=== PATIENT | female | born 1940 | race Caucasian/White ===

== ENCOUNTER 2018-03-03 09:07 | Day surgery (SDC) | payer MEDICARE, OTHER ==
[~2018-03-03] VITALS: Ht 160 cm; Wt 74.5 kg
[~2018-03-03 09:07] MED LIST: Aspirin EC325 MG PO; CHLO25B PO; ENOX30I SC; GABA300 PO; HYDMOR2 PO; LEVSOD50 PO; OMEP20ER PO; SIMV80 PO; VALS80 PO
== END 2018-03-03 11:41 | disposition home or self-care (01) ==
LOC: ORSCSDS 09:07
PROVIDERS: Anesthesiology
PROC: 3E0R33Z Introduction of Anti-inflammatory into Spinal Canal, Percutaneous Approach (ICD-10-PCS; principal; 2018-03-03 10:15)
DX: M50.122 Cervical disc disorder at C5-C6 level with radiculopathy (principal); I10 Essential (primary) hypertension; E78.00 Pure hypercholesterolemia, unspecified; K21.9 Gastro-esophageal reflux disease without esophagitis; I25.10 Atherosclerotic heart disease of native coronary artery without angina pectoris; Z87.891 Personal history of nicotine dependence; Z79.899 Other long term (current) drug therapy
CPT/HCPCS: J1040; J2250; J3010; J7120

== ENCOUNTER 2018-03-06 14:30 | Emergency (ER) | payer MEDICARE, OTHER ==
[~2018-03-06] VITALS: Ht 157.5 cm; Wt 72.6 kg
[2018-03-06 15:11] LABS: BASOPHILS ABSOLUTE AUTO 0.03 K/mm3 (0.00-0.23); BASOPHILS PERCENT AUTO 0 % (0-2); EOSINOPHILS ABSOLUTE AUTO 0.07 K/mm3 (0.00-0.68); EOSINOPHILS PERCENT AUTO 1 % (0-6); Hematocrit 43.5 % (33.0-51.0); Hemoglobin 15.2 g/dL (11.5-16.0); IMMATURE GRAN ABSOLUTE AUTO 0.03 K/mm3 (0.00-0.10); IMMATURE GRAN PERCENT AUTO 0 % (0-1); LYMPHOCYTES ABSOLUTE AUTO 1.25 K/mm3 (0.84-5.20); LYMPHOCYTES PERCENT AUTO 16 % (21-46); MONOCYTES ABSOLUTE AUTO 0.74 K/mm3 (0.16-1.47); MONOCYTES PERCENT AUTO 9 % (4-13); Mean Corpuscular HGB 29.2 pg (26.0-34.0); Mean Corpuscular HGB Conc 34.9 g/dL (31.5-36.5); Mean Corpuscular Volume 84 fL (80-100); Mean Platelet Volume 8.7 fL (9.1-12.4); NEUTROPHILS ABSOLUTE AUTO 5.82 K/mm3 (1.96-9.15); NEUTROPHILS PERCENT AUTO 73 % (41-73); Platelet Count 287 K/mm3 (150-400); RDW Coefficient Variation 12.7 % (11.7-14.2); RDW Standard Deviation 38.3 fL (35.1-46.3); Red Blood Cell Count 5.21 M/mm3 (3.80-5.20); White Blood Cell Count 7.94 K/mm3 (4.00-11.30)
[2018-03-06 15:33] LABS: Alanine Aminotransfer (ALT/SGP 25 U/L (12-78); Albumin, Blood 3.6 g/dL (3.4-5.0); Alk Phos 89 U/L (50-136); Anion Gap 11 mmol/L (6-16); Aspartate Aminotrans (AST/SGOT 20 U/L (12-37); Bilirubin, Total 0.4 mg/dL (0.1-1.0); Blood Urea Nitrogen 13 mg/dL (8-24); Bun/Creatinine Ratio 15.1 (12.0-20.0); CO2, Blood 24 mmol/L (21-32); Calcium, Blood 8.4 mg/dL (8.5-10.1); Chloride, Blood 96 mmol/L (98-108); Creatinine, Blood 0.86 mg/dL (0.40-1.00); Globulin, Blood 3.6 g/dL (2.2-4.0); Glomerular Filtration Rate >60 (60-); Glucose, Blood 93 mg/dL (70-99); Magnesium, Blood 1.9 mg/dL (1.6-2.4); Potassium, Blood 3.7 mmol/L (3.5-5.5); Sodium, Blood 131 mmol/L (136-145); Total Protein, Blood 7.2 g/dL (6.4-8.2); Troponin I <0.015 ng/mL (0.000-0.040)
== END 2018-03-06 16:07 | disposition home or self-care (01) ==
LOC: ER 14:30
PROVIDERS: Emergency Medicine
DX: I48.0 Paroxysmal atrial fibrillation (principal); Z79.899 Other long term (current) drug therapy
CPT/HCPCS: 36415; 71046; 80053; 83735; 84484; 85025; 93005; 93010; 96360; 99284; J7030

== ENCOUNTER → 2018-03-12 | Outpatient (CLI) | payer MEDICARE, OTHER ==
[2018-03-12 13:50] LABS: Adenovirus F 40/41 Not Detected (NOT DETECT); Astrovirus Not Detected (NOT DETECT); Campylobacter Sp Not Detected (NOT DETECT); Cryptosporidium Not Detected (NOT DETECT); Cyclospora Cayetanensis Not Detected (NOT DETECT); E. Coli O157 Not Detected (NOT DETECT); Entamoeba Histolytica Not Detected (NOT DETECT); Enteroaggregative E. coli-EAEC Not Detected (NOT DETECT); Enteropathogenic E. coli-EPEC Not Detected (NOT DETECT); Enterotoxigenic E. coli-ETEC Not Detected (NOT DETECT); Giardia Lamblia Not Detected (NOT DETECT); Norovirus GI/GII Not Detected (NOT DETECT); Plesiomonas Shigelloides Not Detected (NOT DETECT); Rotavirus A Not Detected (NOT DETECT); Salmonella Sp Not Detected (NOT DETECT); Sapovirus Not Detected (NOT DETECT); Shiga Toxin-prod E. coli-STEC Not Detected (NOT DETECT); Shigella/Enteroin E. coli-EIEC Not Detected (NOT DETECT); Vibrio Cholerae Not Detected (NOT DETECT); Vibrio Sp Not Detected (NOT DETECT); Yersinia Enterocolitica Not Detected (NOT DETECT)
== END | disposition home or self-care (01) ==
LOC: LAB EV 12:30
PROVIDERS: Internal Medicine Gastroenterology
DX: K52.9 Noninfective gastroenteritis and colitis, unspecified (principal)
CPT/HCPCS: 87507

== ENCOUNTER 2019-02-08 09:04 | Day surgery (SDC) | payer MEDICARE, OTHER ==
[~2019-02-08] VITALS: Ht 162.6 cm; Wt 80.0 kg
[~2019-02-08 09:04] MED LIST changes: +LEVSOD25 PO
[2019-02-08] MEDS ORDERED: ASPI81CH PO (09:43)
--- NOTE | 2019-02-08 14:12 | NUR ---
SUMMARY: PT HAS HAD SOMEWHAT UNEVENTFUL POST PROCEDURE COURSE IN RECOVERY. CURRENTLY SITTING IN LOW FOWLERS POSITION EATING LUNCH - ASSISTING. ORDERS TO LAY FLAT X 2 HOURS COMPLETED. NO SIGNS OF BLEEDING INTO ABDOMEN - ACCESS SITE IN LOWER LEFT QUADRANT OF ABDOMEN (ANTEGRADE STICK TO RIGHT SIDE). DENIES PAIN OR DISCOMFORT IN ABDOMEN, BACK, PELVIS, OR HIP. TR BAND ATTEMPTED TO DEFLATE AT 2 HOUR NATHALIE. IMMEDIATE BLEEDING NOTED AFTER REMOVAL OF 2 CC OF AIR. REINFLATED WITH HEMOSTASIS ACHIEVED. CMS TO RIGHT HAND REMAINS INTACT. CAP REFILL BRISK. NO N/T. DISCHARGE INSTRUCTIONS REVIEWED WITH PATIENT AND - BOTH OF WHOM VERBALIZE UNDERSTANDING OF ALL INSTRUCTIONS GIVEN.
--- NOTE | 2019-02-08 14:54 | NUR ---
ATTEMPTING TR DEFLATION AGAIN. NO SIGNS OF BLEEDING AT THIS TIME. CONTINUE CLOSE MONITORING.
--- NOTE | 2019-02-08 14:55 | NUR ---
PT IN HIGH FOWLERS POSITION. NO SIGNS OR SYMPTOMS OF BLEEDING INTO ABDOMEN. DENIES PAIN OR DISCOMFORT. NO EXTERNAL BLEEDING NOTED. NO BACK PAIN OR PELVIC PAIN NOTED.
--- NOTE | 2019-02-08 16:05 | NUR ---
SUMMARY: TR BAND FULLY DEFLATED WITHOUT ISSUE, REMAINS IN PLACE AT THIS TIME. AT 3 HOUR NATHALIE PATIENT AMBULATED TO BATHROOM AND BACK. STEADY ON FEET INITIALLY. UPON RETURN TO STRETCHER, PT C/O DIZZINESS AND THEN BECAME SOMEWHAT UNRESPONSIVE VERBALLY. SAT ON EDGE OF STRETCHER AND STARTED TO LEAN FORWARD AND NOT RESPOND. SKIN PALE, CLAMMY. THIS RN LAID PATIENT BACK ONTO STRETCHER AND ASSESSED GROIN. + LARGE HEMATOMA FELT. 2ND RN IN TO ASSIST AND HOLD PRESSURE. VITALS TAKEN. MD NOTIFIED. TECH NOTIFIED. PRESSURE HELD x 20 MINUTES WITH RESOLUTION OF HEMATOMA. PRESSURE DROPPED TO 70'S SYSTOLIC DURING THIS - FLUID BOLUS OF 600 ML GIVEN WITH RETURN OF PRESSURE TO 140'S SYSTOLIC. PT C/O NAUSEA AND FEELING CLAMMY SKIN DURING EPISODE. RESOLVED AT THIS TIME. PT CURRENTLY LAYING FLAT ON STRETCHER. ACCESS SITE REMAINS SOFT. FREQUENT ASSESSMENTS DONE. VSS AT THIS TIME. CONTINUE CLOSE AND FREQUENT MONITORING.
--- NOTE | 2019-02-08 17:30 | NUR ---
PT HAD SECOND INCIDENT OF BLEEDING/HEMATOMA TO ACCESS SITE AT APPROX 1630. GOLF BALL SIZED HEMATOMA PALPATED. PRESSURE HELD X 10 MINUTES WITH RESOLUTION OF HEMOTOMA. MD IN TO SEE PATIENT. DECISION TO SEND TO PCU FOR EXTENDED RECOVERY WITH POSSIBLE ADMISSION IF NEEDED. MD DESIRES PT TO BE OBSERVED OVER NEXT 3-4 HOURS WITH REEVALUATION FOR DISCHARGE HOME LATER THIS EVENING. PT AGREES TO PLAN. AWAITING BED PLACEMENT AND MD PROVIDER SERVICE REPRESENTATIVE.
--- NOTE | 2019-02-08 17:33 | NUR ---
VITAL SIGNS HAVE REMAINED STABLE OVER LAST 1.5 HOURS. BP RUNNING 120-140SYSTOLIC WITH HR IN 50'S. BILATERAL LEGS PINK WARM AND DRY.
--- NOTE | 2019-02-08 18:42 | NUR ---
PATIENT ARRIVED FROM [facility]ART CENTER TO ROOM ICU 14 AT 1830, BEDSIDE REPORT WAS GIVEN, PATIENT WAS ORIENTED TO ROOM AND NEW ENVIRONMENT, PATIENT IS ALERT AND ORIENTED, LUNG SOUNDS CLEAR, NSR, PER REA KILGORE RN, PATIENT'S HEART RATE WILL DROP DOWN TO 40'S OCCASSIOBNALLY, PATIENT IS ASYMPTOMATIC, ARMBOARD ON RIGHT RADIAL, TR BAND REMOVED, AND SITE COVERED WITH GAUZE AND OPSITE, NO BLEEDING NOTED, PATIENT ALSO HAS SITE ON RLQ OF ABDOMEN, COVERED WITH GAUZE AND OPSITE, SMALL AMOUNT OF BLOODY DRAINAGE NOTED UPON ARRIVAL, OUTLINES MARKED, SITE PALPATED AND NO HEMATOMA NOTED, NO BLEEDING, SOFT AND NONTENDER, PATIENT REBLED ONCE AT TR BAND SITE EARLIER TODAY, AND TWICE AT RLQ, PRESSURE WAS HELD ON ABDOMINAL SITE 20 MINUTES FOR EACH REBLEED, PATIENT'S RLE PINK, WARM AND PATIENT REPORTS CSM INTACT, ABLE TO WIGGLE TOES, RIGHT HAND WARM, PINK, AND SENSATION INTACT, PATIENT IS ABLE TO WIGGLE FINGERS, PATIENT DENIES PAIN, AFEBRILE, CALL LIGHT IN REACH, WILL CONTINUE TO MONITOR AND GIVE REPORT TO ONCOMING FLATBED OWNER OPERATOR.
--- NOTE | 2019-02-08 21:20 | NUR ---
UP TO TOILET GAIT STEADY DENIES DIZZINES SOB OR OTHER DISCOMFORT. VOIDS ELLE URINE . CONTINUE TO MONITOR AND REPORT CHANGE IN PATIENT CONDITION. ADSIST WITH RETURNING BACK TO BED.
--- NOTE | 2019-02-08 22:28 | NUR ---
ASSUME CARE: REPORT RECIEVED FROM OFF GOING RN DARCY. MONITOR INTACT SHOWING SINUS RHYTHM WITH PAC. HEART RATE 50'S. DENIES DISCOMFORT. TR BAND SITE WITH ARMBOARD IN PLACE SITE CLEAR. ABDOMEN SITE CLEAR NO HEMATOMA SLGHTLY TENDER NO FURTHER DRAINAGEL ON BEDPAN VOIDED ELLE URINE, A/O REQUEST "SOMETHING TO EAT: TOLERATES WATER, TURKEY SANDWITCH AND RADHA PUDDING WELL. SKIN WARM DRY LUNG SOUNDS CLEAR UPPER LOBES WITH DECREASED SOUNDS IN THE BASES/ RESPIRATIONS REGULAR AND EASY AT REST. SPO2 95-98% ON ROOM AIR VISITS ON PHONE. STATES DC ORDERS HOME WITH S.O. CONTINUE TO MONITOR AND REPORT CHANGE IN PATIENT CONDITION.
--- NOTE | 2019-02-09 06:13 | NUR ---
SHIFT SUMMARY RESTS QUIETLY WHEN UNDISTURBED MONITOR INTACT SHOWING A FIB HEART RATE 50'S-60'S DENIES DISCOMFORT. LUNG SOUNDS CLEAR RESPIRATIONS REGULAR AND EASY ON ROOM AIR. GAIT STEADY TO TOILET VOIDS ELLE URINE. TR BAND SITE CLEAR NO EDEMA ARMBOARD IN PLACE. ABDOMEN SITE SOFT SLIGHTLY TENDER WITH NO FURTHER DRAINAGE. CONTINUE TO MONITOR AND REPORT CHANGE IN PATIENT CONDITION.
--- NOTE | 2019-02-09 10:40 | NUR ---
0730: CARE ASSUMED, PT SITTING UP IN BED EATING BREAKFAST, DENIES NEEDS OR C/O. DRESSING TO RIGHT WRIST CDI, NO HEMATOMA, BRUISING, OR SWELLING NOTED, SENSATION WNL. DRESSING TO RIGHT GROIN INTACT, DIME SIZED AMOUNT OF DRIED BLOOD NOTED ON DRESSING, DRAINAGE HAS NOT MOVED OUTSIDE OF PERIMETER FROM YESTERDAY. NO HEMATOMA OR BRUISING NOTED, PT REPORTS TENDERNESS WITH PALPATION, DENIES PAIN OTHERWISE. CMS WNL TO RUE AND RLE, SKIN PWD, NO EDEMA TO RUE OR RLE. 0800: ASSESSMENT COMPLETED, PT A&OX4, PLEASANT AND COOPERATIVE, TOLERATED BREAKFAST WELL WITH NO C/O. PT DENIES CHEST PAIN/PRESSURE OR SOB. 0835: PT ASSISTED TO BR, GAIT STEADY. PT THEN GOT DRESSED PER HER REQUEST AND AMBULATED AROUND THE UNIT, GAIT STEADY, PT INDEPENDENT, NOW BACK IN BED WAITING FOR SO TO COME BY. VSS. 0945: SO AT BEDSIDE. IV DC'D WITH TIP INTACT, PRESSURE DRESSING APPLIED. NO CHANGES NOTED TO ACCESS SITES. PT DC TO HOME WITH SO WITH DC INSTRUCTIONS, VERBALIZES UNDERSTANDING. GAIT STEADY UPON DISCHARGE, PT REFUSES WC RIDE.
== END 2019-02-09 09:45 | disposition home or self-care (01) ==
LOC: MHTC 09:04 → ICUW 18:30 → MHTC 02-09 09:45
DX: I73.9 Peripheral vascular disease, unspecified (principal); Z79.899 Other long term (current) drug therapy; Z79.82 Long term (current) use of aspirin
CPT/HCPCS: 85347; 99152; 99153; C1725; C1760; C1769; C1887; C1894; C2623; J1644; J2250; J3010; J7030; J7040; Q9967

== ENCOUNTER 2019-02-18 11:36 | Day surgery (SDC) | payer MEDICARE, OTHER ==
[~2019-02-18] VITALS: Ht 162.6 cm; Wt 77.4 kg
[~2019-02-18 11:36] MED LIST changes: +ASPI81CH PO; +LOSA25
[2019-02-18] MEDS ORDERED: ACID REDUCER20 MG (12:19)
[2019-02-18] MEDS ORDERED: SIMV40 (12:19)
[2019-02-18] MEDS ORDERED: LEVSOD25 (12:19)
== END 2019-02-18 14:00 | disposition home or self-care (01) ==
LOC: ORSCSDS 11:36
PROVIDERS: Internal Medicine Gastroenterology
PROC: 0DB68ZX Excision of Stomach, Via Natural or Artificial Opening Endoscopic, Diagnostic (ICD-10-PCS; principal; 2019-02-18 13:00)
PROC: 0DB88ZX Excision of Small Intestine, Via Natural or Artificial Opening Endoscopic, Diagnostic (ICD-10-PCS; principal; 2019-02-18 13:00)
DX: R11.0 Nausea (principal); R10.10 Upper abdominal pain, unspecified; I25.10 Atherosclerotic heart disease of native coronary artery without angina pectoris; K44.9 Diaphragmatic hernia without obstruction or gangrene; K21.9 Gastro-esophageal reflux disease without esophagitis; E78.5 Hyperlipidemia, unspecified; Z87.11 Personal history of peptic ulcer disease; R19.4 Change in bowel habit; Z87.891 Personal history of nicotine dependence; Z79.899 Other long term (current) drug therapy
CPT/HCPCS: 88305; 88342; J2704; J7120

== ENCOUNTER 2019-09-28 11:20 | Day surgery (SDC) | payer MEDICARE, OTHER ==
[~2019-09-28] VITALS: Ht 160 cm; Wt 82.6 kg
[~2019-09-28 11:20] MED LIST changes: -LOSA25; +LOSA25 PO; +SIMV40 PO
--- NOTE | 2019-09-28 11:46 | NUR ---
09/28/19 1146 Chapincito Morales CALL LIGHT WITHIN REACH
== END 2019-09-28 12:32 | disposition home or self-care (01) ==
LOC: ORSCSDS 11:20
PROVIDERS: Anesthesiology
PROC: 3E0R33Z Introduction of Anti-inflammatory into Spinal Canal, Percutaneous Approach (ICD-10-PCS; principal; 2019-09-28 12:30)
DX: M51.16 Intervertebral disc disorders with radiculopathy, lumbar region (principal); E78.00 Pure hypercholesterolemia, unspecified; K21.9 Gastro-esophageal reflux disease without esophagitis; E03.9 Hypothyroidism, unspecified; I25.10 Atherosclerotic heart disease of native coronary artery without angina pectoris; Z87.891 Personal history of nicotine dependence; I10 Essential (primary) hypertension; Z79.82 Long term (current) use of aspirin; Z79.899 Other long term (current) drug therapy
CPT/HCPCS: J1040

== ENCOUNTER 2019-10-10 17:01 | Emergency (ER) | payer OTHER, MEDICARE ==
[~2019-10-10] VITALS: Ht 160 cm; Wt 79.4 kg
[2019-10-10 17:44] LABS: BASOPHILS ABSOLUTE AUTO 0.04 K/mm3 (0.00-0.23); BASOPHILS PERCENT AUTO 1 % (0-2); EOSINOPHILS ABSOLUTE AUTO 0.21 K/mm3 (0.00-0.68); EOSINOPHILS PERCENT AUTO 3 % (0-6); Hematocrit 41.4 % (33.0-51.0); Hemoglobin 14.3 g/dL (11.5-16.0); IMMATURE GRAN ABSOLUTE AUTO 0.04 K/mm3 (0.00-0.10); IMMATURE GRAN PERCENT AUTO 1 % (0-1); LYMPHOCYTES ABSOLUTE AUTO 1.39 K/mm3 (0.84-5.20); LYMPHOCYTES PERCENT AUTO 19 % (21-46); MONOCYTES ABSOLUTE AUTO 0.42 K/mm3 (0.16-1.47); MONOCYTES PERCENT AUTO 6 % (4-13); Mean Corpuscular HGB 29.1 pg (26.0-34.0); Mean Corpuscular HGB Conc 34.5 g/dL (31.5-36.5); Mean Corpuscular Volume 84 fL (80-100); Mean Platelet Volume 8.7 fL (9.1-12.4); NEUTROPHILS ABSOLUTE AUTO 5.08 K/mm3 (1.96-9.15); NEUTROPHILS PERCENT AUTO 71 % (41-73); Platelet Count 253 K/mm3 (150-400); RDW Coefficient Variation 11.9 % (11.7-14.2); RDW Standard Deviation 36.2 fL (35.1-46.3); Red Blood Cell Count 4.92 M/mm3 (3.80-5.20); White Blood Cell Count 7.18 K/mm3 (4.00-11.30)
[2019-10-10 18:04] LABS: Troponin I <0.015 ng/mL (0.000-0.040)
[2019-10-10 18:05] LABS: Alanine Aminotransfer (ALT/SGP 29 U/L (12-78); Albumin, Blood 3.6 g/dL (3.4-5.0); Albumin/Globulin Ratio 1.1 (0.8-1.8); Alk Phos 76 U/L (50-136); Anion Gap 9 mmol/L (6-16); Aspartate Aminotrans (AST/SGOT 26 U/L (12-37); Bilirubin, Total 0.4 mg/dL (0.1-1.0); Blood Urea Nitrogen 13 mg/dL (8-24); Bun/Creatinine Ratio 15.5 (12.0-20.0); CO2, Blood 26 mmol/L (21-32); Calcium, Blood 8.5 mg/dL (8.5-10.1); Chloride, Blood 95 mmol/L (98-108); Creatinine, Blood 0.84 mg/dL (0.40-1.00); Globulin, Blood 3.3 g/dL (2.2-4.0); Glomerular Filtration Rate >60 (60-); Glucose, Blood 119 mg/dL (70-99); Potassium, Blood 2.8 mmol/L (3.5-5.5); Sodium, Blood 130 mmol/L (136-145); Total Protein, Blood 6.9 g/dL (6.4-8.2)
[2019-10-10] MEDS ORDERED: METOPROLOL SUCC25 MG PO (18:14)
== END 2019-10-10 19:52 | disposition home or self-care (01) ==
LOC: ER 17:01
PROVIDERS: Emergency Medicine
DX: R10.13 Epigastric pain (principal); E87.6 Hypokalemia; R07.9 Chest pain, unspecified; Z79.899 Other long term (current) drug therapy; I25.10 Atherosclerotic heart disease of native coronary artery without angina pectoris; I10 Essential (primary) hypertension; E03.9 Hypothyroidism, unspecified; K21.9 Gastro-esophageal reflux disease without esophagitis
CPT/HCPCS: 36415; 71046; 76705; 80053; 84484; 85025; 93005; 93010; 99285-25

== ENCOUNTER 2020-03-13 10:19 | Emergency (ER) | payer MEDICARE, OTHER ==
[~2020-03-13] VITALS: Ht 160 cm; Wt 79.4 kg
[~2020-03-13 10:19] MED LIST changes: +METOPROLOL SUCC25 MG PO
[2020-03-13] MEDS ORDERED: HYDMOR2 PO (11:46)
== END 2020-03-13 11:51 | disposition home or self-care (01) ==
LOC: ER 10:19
DX: S42.031A Displaced fracture of lateral end of right clavicle, initial encounter for closed fracture (principal); I25.10 Atherosclerotic heart disease of native coronary artery without angina pectoris; I10 Essential (primary) hypertension; I73.9 Peripheral vascular disease, unspecified; E03.9 Hypothyroidism, unspecified; K21.9 Gastro-esophageal reflux disease without esophagitis; Z79.899 Other long term (current) drug therapy; Z87.891 Personal history of nicotine dependence; W01.0XXA Fall on same level from slipping, tripping and stumbling without subsequent striking against object, initial encounter
CPT/HCPCS: 73000; 99283-25

== ENCOUNTER 2020-04-10 10:25 | Day surgery (SDC) | payer MEDICARE, OTHER ==
[~2020-04-10] VITALS: Wt 79.1 kg
[2020-04-10 11:33] LABS: Anion Gap 8 mmol/L (6-16); Blood Urea Nitrogen 11 mg/dL (8-24); Bun/Creatinine Ratio 14.4 (12.0-20.0); CO2, Blood 26 mmol/L (21-32); Calcium, Blood 8.8 mg/dL (8.5-10.1); Chloride, Blood 96 mmol/L (98-108); Creatinine, Blood 0.76 mg/dL (0.40-1.00); Glomerular Filtration Rate >60 (60-); Glucose, Blood 93 mg/dL (70-99); Potassium, Blood 3.6 mmol/L (3.5-5.5); Sodium, Blood 130 mmol/L (136-145)
--- NOTE | 2020-04-10 13:50 | NUR ---
PT TO RECOVERY ROOM POST PROCEDURE. PT ALERT AND ORIENTED, PLEASENT AND COOPERTIVE; DENIES PAIN POST PROCEDURE. MONITOR SB 50'S, B/P 167/67, AFEBRILE, SPO2 96% RA. R GROIN NO SWELLING/HEMATOMA, TEGADERM DRSG INTACT, BLE PULSES 1+. PT TAKING SIPS OF H2O.
--- NOTE | 2020-04-10 16:16 | NUR ---
JULIAN PATCH PLACED BY [facility] OF ADMISSIONS.
--- NOTE | 2020-04-10 16:30 | NUR ---
PT AMB TO THE BATHROOM WITHOUT ISSUE, GAIT STEADY; SITE UNCHANGED.
--- NOTE | 2020-04-10 16:40 | NUR ---
PT DRESSED SELF WITHOUT ISSUE, SITE UNCHANGED-IV REMOVED, CANNULA INTACT.
--- NOTE | 2020-04-10 16:55 | NUR ---
PT RECEIVED DISCHARGE INSTRUCTIONS, MED LIST AND AFTER CARE INSTRUCTIONS; VERBALIZED GOOD UNDERSTANDING. PT LEFT FACILITY VIA W/C, CONDITION STABLE.
== END 2020-04-10 16:55 | disposition home or self-care (01) ==
LOC: MHTC 10:25
PROVIDERS: Radiology Diagnostic Radiology
DX: I70.213 Atherosclerosis of native arteries of extremities with intermittent claudication, bilateral legs (principal); I10 Essential (primary) hypertension; E78.5 Hyperlipidemia, unspecified; R07.89 Other chest pain; E66.9 Obesity, unspecified; E03.9 Hypothyroidism, unspecified; Z87.891 Personal history of nicotine dependence; Z79.82 Long term (current) use of aspirin; Z79.899 Other long term (current) drug therapy
CPT/HCPCS: 37228; 37232; 75716; 75774; 80048; 85347; 99152; 99153; C1714; C1725; C1757; C1760; C1769; C1887; C1894; C2623; C9766; J1644; J2250; J3010; J7030; Q9967

== ENCOUNTER → 2020-05-10 | Outpatient (CLI) | payer MEDICARE, OTHER | LOC: LAB SHORT 07:40 → LAB EV 07:40 | DX: R35.0 Frequency of micturition (principal) | CPT/HCPCS: 87086 ==

== ENCOUNTER → 2020-08-13 | Outpatient (CLI) | payer MEDICARE, OTHER | END | disposition home or self-care (01) | LOC: LAB SHORT 07:51 → PLD 07:51 | DX: D48.5 Neoplasm of uncertain behavior of skin (principal) | CPT/HCPCS: 88305 ==

== ENCOUNTER → 2020-08-29 | Outpatient (CLI) | payer MEDICARE, OTHER ==
[~2020-08-29] MED LIST changes: +PREG25 PO
== END | disposition home or self-care (01) ==
LOC: PLD 15:51 → LAB SHORT 15:51
DX: D48.5 Neoplasm of uncertain behavior of skin (principal)
CPT/HCPCS: 88305

== ENCOUNTER 2021-01-24 10:24 | Day surgery (SDC) | payer MEDICARE, OTHER ==
[~2021-01-24] VITALS: Ht 160 cm; Wt 86.0 kg
[2021-01-24 11:19] LABS: BASOPHILS ABSOLUTE AUTO 0.03 K/mm3 (0.00-0.23); BASOPHILS PERCENT AUTO 1 % (0-2); EOSINOPHILS ABSOLUTE AUTO 0.15 K/mm3 (0.00-0.68); EOSINOPHILS PERCENT AUTO 2 % (0-6); Hematocrit 40.7 % (33.0-51.0); Hemoglobin 13.8 g/dL (11.5-16.0); IMMATURE GRAN ABSOLUTE AUTO 0.01 K/mm3 (0.00-0.10); IMMATURE GRAN PERCENT AUTO 0 % (0-1); LYMPHOCYTES ABSOLUTE AUTO 0.86 K/mm3 (0.84-5.20); LYMPHOCYTES PERCENT AUTO 13 % (21-46); MONOCYTES ABSOLUTE AUTO 0.58 K/mm3 (0.16-1.47); MONOCYTES PERCENT AUTO 9 % (4-13); Mean Corpuscular HGB 28.3 pg (26.0-34.0); Mean Corpuscular HGB Conc 33.9 g/dL (31.5-36.5); Mean Corpuscular Volume 84 fL (80-100); Mean Platelet Volume 8.8 fL (9.1-12.4); NEUTROPHILS ABSOLUTE AUTO 4.94 K/mm3 (1.96-9.15); NEUTROPHILS PERCENT AUTO 75 % (41-73); Platelet Count 266 K/mm3 (150-400); RDW Coefficient Variation 12.1 % (11.7-14.2); RDW Standard Deviation 36.9 fL (35.1-46.3); Red Blood Cell Count 4.87 M/mm3 (3.80-5.20); White Blood Cell Count 6.57 K/mm3 (4.00-11.30)
[2021-01-24 11:32] LABS: International Normalized Ratio 0.9; Prothrombin Time Results 9.8 Sec (9.7-11.5)
--- NOTE | 2021-01-24 11:35 | NUR ---
PATIENT ARRIVED AT 1100 AND BROUGHT TO THE [facility] PRE OP AREA. LABS DRAWN AND ADMISSION COMPLETED. BLOOD CONSENT SIGNED AND MED RECONCILIATION COMPLETED.
[2021-01-24 11:41] LABS: Anion Gap 4 mmol/L (6-16); Blood Urea Nitrogen 12 mg/dL (8-24); Bun/Creatinine Ratio 15.6 (12.0-20.0); CO2, Blood 30 mmol/L (21-32); Calcium, Blood 8.9 mg/dL (8.5-10.1); Chloride, Blood 100 mmol/L (98-108); Creatinine, Blood 0.77 mg/dL (0.40-1.00); Glomerular Filtration Rate >60 (60-); Glucose, Blood 95 mg/dL (70-99); Potassium, Blood 3.5 mmol/L (3.5-5.5); Sodium, Blood 134 mmol/L (136-145)
--- NOTE | 2021-01-24 13:12 | NUR ---
DR. JAMES AT THE BEDSIDE. SPOKE WITH THE PATIENT REGARDING UPCOMING PROCEDURE. ROOM BEING PREPARED AND PATIENT UP TO THE RESTROOM TO VOID.
--- NOTE | 2021-01-24 13:45 | NUR ---
1325 PATIENT TO THE [facility] FOR PROCEDURE.
--- NOTE | 2021-01-24 16:15 | NUR ---
PATIENT ASSISTED ON AND OFF THE BEDPAN. VOIDED 200 CLEAR YELLOW URINE.
--- NOTE | 2021-01-24 17:10 | NUR ---
PATIENT UP TO THE RESTROOM. LEFT GROIN STABLE. PATIENT SITING ON THE SIDE OF THE BED AND REVIEWED ALL THE DISCHARGE INSTRUCTIONS AND SIGNED, COPIES GIVEN TO THE PATIENT ALONG WITH ANGIOSEAL AND STENT CARD. NO PAIN NOTED. PATIENT DRESSING. PIV REMOVED AND PRESSURE DRESSING APPLIED. NAGATEN INSTRUCTED TO REMOVED GROIN TEGADERM DRESSING TOMORROW EVENING. PATIENT INSTRUCTED TO CALL FOR FOLLOW UP APPOINTMENT FOR FOUR WEEKS.
--- NOTE | 2021-01-24 17:25 | NUR ---
1700 PATIENT STATED THAT SHE FELT LIGHT HEADED. SHE LAID BACK DOWN ON THE BED AND NIBP WAS MEASURED. WAITING 15 MINUITES AND RECHECKED. SEE FLOW SHEET.
--- NOTE | 2021-01-24 18:05 | NUR ---
1750 RESTARTED PIV TO THE LEFT HAND AND GAVE A 200 ML FLUID BOLUS. AT THE BEDSIDE AND UPDATED ON PATIENT STATUS. AWAITING MD TO ARRIVE FOR EVALUATION.
--- NOTE | 2021-01-24 18:16 | NUR ---
PATIENT SITTING UP ON THE SIDE OF THE BED AGAIN. DENIES ANY DIZZINESS AT THIS TIME.
--- NOTE | 2021-01-24 18:38 | NUR ---
DR. JAMES TO THE BEDSIDE AT 1825 AND ASSESSED PATIENT. OK TO DISCHARGE. AFTER 250 ML FLUID BOLUS PATIENT IS UP FOR BED TO THE CHAIR AND NO DROP IN BLOOD PRESSURE OR DIZZINESS NOTED FROM THE PATIENT. VVS. LEFT HAND PIV REMOVED AND PRESSURE DRESSING APPLIED. PATIENT TO WHEELCHAIR AND DISCHARGED HOME WITH . DISCHARGE INSTRUCTIONS IN HAND. IS DRIVING.
== END 2021-01-24 22:58 | disposition home or self-care (01) ==
LOC: MHTC 10:24
PROVIDERS: Radiology Diagnostic Radiology
DX: I70.213 Atherosclerosis of native arteries of extremities with intermittent claudication, bilateral legs (principal); G62.9 Polyneuropathy, unspecified; I48.91 Unspecified atrial fibrillation; I25.10 Atherosclerotic heart disease of native coronary artery without angina pectoris; K21.9 Gastro-esophageal reflux disease without esophagitis; E78.5 Hyperlipidemia, unspecified; I10 Essential (primary) hypertension; E03.9 Hypothyroidism, unspecified; E66.9 Obesity, unspecified; M19.90 Unspecified osteoarthritis, unspecified site; G57.10 Meralgia paresthetica, unspecified lower limb; G47.10 Hypersomnia, unspecified; Z95.5 Presence of coronary angioplasty implant and graft; Z96.642 Presence of left artificial hip joint
CPT/HCPCS: 37221; 37225; 37228; 75716; 75774; 76937; 80048; 85025; 85347; 85610; 99152; 99153; C1714; C1725; C1760; C1769; C1876; C1884; C1887; C1894; C2623; J1644; J2250; J3010; J7030; J7040; J7050; Q9967

== ENCOUNTER → 2022-08-06 | Outpatient (CLI) | payer MEDICARE, OTHER | LOC: LAB SHORT 12:00 → LAB 12:00 | DX: B37.2 Candidiasis of skin and nail (principal) | CPT/HCPCS: 87070; 87205 ==

== ENCOUNTER 2022-08-15 10:37 | Emergency (ER) | payer MEDICARE, OTHER ==
[~2022-08-15] VITALS: Ht 162.6 cm; Wt 74.8 kg
[2022-08-15 11:57] LABS: BASOPHILS ABSOLUTE AUTO 0.04 K/mm3 (0.00-0.23); BASOPHILS PERCENT AUTO 1 % (0-2); EOSINOPHILS ABSOLUTE AUTO 0.14 K/mm3 (0.00-0.68); EOSINOPHILS PERCENT AUTO 2 % (0-6); Hematocrit 41.2 % (33.0-51.0); Hemoglobin 14.3 g/dL (11.5-16.0); IMMATURE GRAN ABSOLUTE AUTO 0.08 K/mm3 (0.00-0.10); IMMATURE GRAN PERCENT AUTO 1 % (0-1); LYMPHOCYTES ABSOLUTE AUTO 1.07 K/mm3 (0.84-5.20); LYMPHOCYTES PERCENT AUTO 14 % (21-46); MONOCYTES ABSOLUTE AUTO 0.59 K/mm3 (0.16-1.47); MONOCYTES PERCENT AUTO 8 % (4-13); Mean Corpuscular HGB 28.6 pg (26.0-34.0); Mean Corpuscular HGB Conc 34.7 g/dL (31.5-36.5); Mean Corpuscular Volume 82 fL (80-100); Mean Platelet Volume 8.6 fL (9.1-12.4); NEUTROPHILS ABSOLUTE AUTO 5.81 K/mm3 (1.96-9.15); NEUTROPHILS PERCENT AUTO 75 % (41-73); Platelet Count 302 K/mm3 (150-400); RDW Coefficient Variation 11.9 % (11.7-14.2); RDW Standard Deviation 35.8 fL (35.1-46.3); White Blood Cell Count 7.73 K/mm3 (4.00-11.30)
[2022-08-15 12:08] LABS: Albumin/Globulin Ratio 0.8 (0.8-1.8); Bilirubin, Total 0.6 mg/dL (0.1-1.0); Bun/Creatinine Ratio 15.7 (12.0-20.0); Calcium, Blood 8.6 mg/dL (8.5-10.1); Creatinine, Blood 0.83 mg/dL (0.40-1.00); Globulin, Blood 3.9 g/dL (2.2-4.0); Potassium, Blood 2.8 mmol/L (3.5-5.5); Total Protein, Blood 6.9 g/dL (6.4-8.2)
[2022-08-15] MEDS ORDERED: OMEP20ER PO (15:05)
[2022-08-15] MEDS ORDERED: CHLO25B PO (15:06)
[2022-08-15] MEDS ORDERED: LEVSOD25 PO (15:06)
[2022-08-15 17:22] LABS: Bun/Creatinine Ratio 18.9 (12.0-20.0); Creatinine, Blood 0.37 mg/dL (0.40-1.00); Potassium, Blood 2.3 mmol/L (3.5-5.5)
[2022-08-15 17:46] LABS: Calcium, Blood 5.3 mg/dL (8.5-10.1)
[2022-08-15 18:59] LABS: Bun/Creatinine Ratio 16.4 (12.0-20.0); Creatinine, Blood 0.61 mg/dL (0.40-1.00); Potassium, Blood 3.7 mmol/L (3.5-5.5)
[2022-08-15 19:00] LABS: Calcium, Blood 8.3 mg/dL (8.5-10.1)
== END 2022-08-15 19:34 | disposition home or self-care (01) ==
LOC: ER 10:37
PROVIDERS: Physician Assistant; Student in an Organized Health Care Education/Training Program
DX: R19.7 Diarrhea, unspecified (principal); E87.6 Hypokalemia; E87.1 Hypo-osmolality and hyponatremia; I10 Essential (primary) hypertension; I25.10 Atherosclerotic heart disease of native coronary artery without angina pectoris; Z79.899 Other long term (current) drug therapy; Z79.890 Hormone replacement therapy; Z79.82 Long term (current) use of aspirin; Z96.653 Presence of artificial knee joint, bilateral; Z95.5 Presence of coronary angioplasty implant and graft
CPT/HCPCS: 36415; 80048; 80053; 83690; 85025; 93005; 93010; A9270; J7030

== ENCOUNTER 2023-04-01 13:32 | Day surgery (SDC) | payer MEDICARE, OTHER ==
[~2023-04-01] VITALS: Ht 157.5 cm; Wt 96.8 kg
[2023-04-01] MEDS ORDERED: POTCHL20ER PO (14:27)
--- NOTE | 2023-04-01 16:32 | NUR ---
04/01/23 1632 Shahana Davila IV REMOVED PRIOR TO DISCHARGE, SITE WNL
[2023-04-01 16:39] VITALS: BP 178/74
== END 2023-04-01 16:20 | disposition home or self-care (01) ==
LOC: ORSCSDS 13:32
PROVIDERS: Internal Medicine Gastroenterology
PROC: 0DB98ZX Excision of Duodenum, Via Natural or Artificial Opening Endoscopic, Diagnostic (ICD-10-PCS; principal; 2023-04-01 15:15)
PROC: 0DB68ZX Excision of Stomach, Via Natural or Artificial Opening Endoscopic, Diagnostic (ICD-10-PCS; principal; 2023-04-01 15:15)
DX: R10.13 Epigastric pain (principal); K44.9 Diaphragmatic hernia without obstruction or gangrene; K57.10 Diverticulosis of small intestine without perforation or abscess without bleeding; K21.9 Gastro-esophageal reflux disease without esophagitis; I25.10 Atherosclerotic heart disease of native coronary artery without angina pectoris; I48.91 Unspecified atrial fibrillation; E03.9 Hypothyroidism, unspecified; E78.5 Hyperlipidemia, unspecified; I10 Essential (primary) hypertension; I73.9 Peripheral vascular disease, unspecified; Z87.891 Personal history of nicotine dependence; Z79.899 Other long term (current) drug therapy
CPT/HCPCS: 88305; 88342; J0461; J2001; J2405; J2704; J7120; Q9968

== ENCOUNTER 2023-08-06 08:30 | Emergency (ER) | payer MEDICARE, OTHER ==
[~2023-08-06] VITALS: Ht 157.5 cm; Wt 83.5 kg
[~2023-08-06 08:30] MED LIST changes: +POTCHL20ER PO
[2023-08-06] MEDS ORDERED: LEVSOD25 PO (09:19)
[2023-08-06 09:53] LABS: BASOPHILS ABSOLUTE AUTO 0.03 K/mm3 (0.00-0.23); BASOPHILS PERCENT AUTO 1 % (0-2); EOSINOPHILS ABSOLUTE AUTO 0.07 K/mm3 (0.00-0.68); EOSINOPHILS PERCENT AUTO 1 % (0-6); Hematocrit 36.6 % (33.0-51.0); IMMATURE GRAN ABSOLUTE AUTO 0.02 K/mm3 (0.00-0.10); IMMATURE GRAN PERCENT AUTO 0 % (0-1); LYMPHOCYTES ABSOLUTE AUTO 0.75 K/mm3 (0.84-5.20); LYMPHOCYTES PERCENT AUTO 12 % (21-46); MONOCYTES PERCENT AUTO 11 % (4-13); Mean Corpuscular HGB 28.2 pg (26.0-34.0); Mean Corpuscular HGB Conc 32.8 g/dL (31.5-36.5); Mean Corpuscular Volume 86 fL (80-100); Mean Platelet Volume 9.1 fL (9.1-12.4); NEUTROPHILS ABSOLUTE AUTO 4.62 K/mm3 (1.96-9.15); NEUTROPHILS PERCENT AUTO 75 % (41-73); Platelet Count 256 K/mm3 (150-400); RDW Coefficient Variation 12.2 % (11.7-14.2); RDW Standard Deviation 38.3 fL (35.1-46.3); Red Blood Cell Count 4.26 M/mm3 (3.80-5.20); White Blood Cell Count 6.19 K/mm3 (4.00-11.30)
[2023-08-06 10:18] LABS: Bun/Creatinine Ratio 13.4 (12.0-20.0); Calcium, Blood 8.7 mg/dL (8.5-10.1); Creatinine, Blood 0.75 mg/dL (0.40-1.00); Potassium, Blood 4.1 mmol/L (3.5-5.5)
[2023-08-06 11:29] VITALS: BP 145/84
== END 2023-08-06 11:33 | disposition home or self-care (01) ==
LOC: ER 08:30
PROVIDERS: Student in an Organized Health Care Education/Training Program
DX: I73.9 Peripheral vascular disease, unspecified (principal); Z79.899 Other long term (current) drug therapy; I10 Essential (primary) hypertension; I25.10 Atherosclerotic heart disease of native coronary artery without angina pectoris; E78.5 Hyperlipidemia, unspecified; E03.9 Hypothyroidism, unspecified; K21.9 Gastro-esophageal reflux disease without esophagitis
CPT/HCPCS: 80048; 85025; 93926; 99284-25

== ENCOUNTER 2023-10-13 06:52 | Day surgery (SDC) | payer MEDICARE, OTHER ==
[~2023-10-13] VITALS: Ht 157.5 cm; Wt 85.0 kg
[2023-10-13] VITALS (8 sets, daily range): BP systolic 94–154; BP diastolic 66–103
[~2023-10-13 06:52] MED LIST changes: +CLOP75 PO
--- NOTE | 2023-10-13 10:35 | NUR ---
PATIENT ARRIVED BACK TO RECOVERY ROOM WITH HOB FLAT. L GROIN SITE C/D/I SOFT/NONTENDER, NO EVIDENCE OF BLEEDING. PATIENT DROWSY BUT ORIENTED. VSS ON RA
--- NOTE | 2023-10-13 11:19 | NUR ---
PATIENT REPOSITIONED IN BED. HOB FLAT. L GROIN SITE C/D/I SOFT/NONTENDER, NO EVIDENCE OF BLEEDING. VSS ON RA
--- NOTE | 2023-10-13 11:37 | NUR ---
PATIENTS HOB ELEVATED. L ANGIO SEAL SITE C/D/I SOFT/NONTENDER, NO EVIDENCE OF BLEEDING. VSS ON RA.
--- NOTE | 2023-10-13 12:38 | NUR ---
PATIENT AMBULATING TO RESTROOM WITHOUT DIFFICULTY. LEFT GROIN SITE C/D/I SOFT/NONTENDER, NO EVIDENCE OF BLEEDING. VSS ON RA. PATIENT TOLERATING PO INTAKE WELL.
--- NOTE | 2023-10-13 12:43 | NUR ---
PHARMACY CALLED FOR NEW PRESCRIPTION OF PLAVIX
--- NOTE | 2023-10-13 13:06 | NUR ---
DISCHARGE INSTRUCTIONS REVIEWED WITH PATIENT. ALL QUESTIONS REVIEWED WITH PATIENT. PLAVIX MEDICATION REVIEWED WITH PATIENT. PIV REMOVED WITHOUT DIFFICULTY, CATHETER INTACT. L GROIN SITE C/D/I SOFT/NONTENDER. PATIENT WHEELED TO HOSPITAL ENTRANCE. SPOUSE ABLE TO PROVIDE TRANSPORTATION HOME.
== END 2023-10-13 13:00 | disposition home or self-care (01) ==
LOC: MHTC 06:52
DX: I70.221 Atherosclerosis of native arteries of extremities with rest pain, right leg (principal); L97.419 Non-pressure chronic ulcer of right heel and midfoot with unspecified severity; I48.91 Unspecified atrial fibrillation; I25.10 Atherosclerotic heart disease of native coronary artery without angina pectoris; K21.9 Gastro-esophageal reflux disease without esophagitis; E78.5 Hyperlipidemia, unspecified; I10 Essential (primary) hypertension; E03.9 Hypothyroidism, unspecified; G62.9 Polyneuropathy, unspecified; Z95.5 Presence of coronary angioplasty implant and graft; Z87.891 Personal history of nicotine dependence; Z79.899 Other long term (current) drug therapy
CPT/HCPCS: 76937; 85347; 99152; 99153; C1725; C1753; C1760; C1769; C1874; C1876; C1887; C1894; J1644; J2250; J3010; J7030; J7050; Q9967

== ENCOUNTER → 2024-04-04 | Outpatient (CLI) | payer MEDICARE, OTHER ==
[2024-04-04 10:38] LABS: BASOPHILS ABSOLUTE AUTO 0.04 K/mm3 (0.00-0.23); BASOPHILS PERCENT AUTO 1 % (0-2); EOSINOPHILS ABSOLUTE AUTO 0.18 K/mm3 (0.00-0.68); EOSINOPHILS PERCENT AUTO 3 % (0-6); Hematocrit 45.1 % (33.0-51.0); Hemoglobin 15.1 g/dL (11.5-16.0); IMMATURE GRAN ABSOLUTE AUTO 0.02 K/mm3 (0.00-0.10); IMMATURE GRAN PERCENT AUTO 0 % (0-1); LYMPHOCYTES ABSOLUTE AUTO 1.11 K/mm3 (0.84-5.20); LYMPHOCYTES PERCENT AUTO 19 % (21-46); MONOCYTES PERCENT AUTO 7 % (4-13); Mean Corpuscular HGB Conc 33.5 g/dL (31.5-36.5); Mean Corpuscular Volume 84 fL (80-100); Mean Platelet Volume 9.5 fL (9.1-12.4); NEUTROPHILS ABSOLUTE AUTO 4.04 K/mm3 (1.96-9.15); NEUTROPHILS PERCENT AUTO 70 % (41-73); Platelet Count 264 K/mm3 (150-400); RDW Coefficient Variation 13.3 % (11.7-14.2); RDW Standard Deviation 40.5 fL (35.1-46.3); Red Blood Cell Count 5.39 M/mm3 (3.80-5.20); White Blood Cell Count 5.79 K/mm3 (4.00-11.30)
[2024-04-04 10:57] LABS: Albumin, Blood 3.6 g/dL (3.4-5.0); Albumin/Globulin Ratio 0.9 (0.8-1.8); Bilirubin, Total 0.4 mg/dL (0.1-1.0); Bun/Creatinine Ratio 12.5 (12.0-20.0); Calcium, Blood 9.3 mg/dL (8.5-10.1); Creatinine, Blood 0.96 mg/dL (0.40-1.00); Thyroid Stimulating Hormone 1.38 uIU/mL (0.360-4.800); Total Protein, Blood 7.6 g/dL (6.4-8.2)
== END | disposition home or self-care (01) ==
LOC: LAB SHORT 10:30 → LAB 10:30
PROVIDERS: Family Medicine
DX: R00.0 Tachycardia, unspecified (principal); R53.83 Other fatigue
CPT/HCPCS: 80053; 83880; 84443; 84484; 85025; 85379

== ENCOUNTER → 2024-07-06 | Outpatient (CLI) | payer MEDICARE, OTHER ==
[2024-07-06 20:42] LABS: Bacterial Vaginosis PCR Negative (NEGATIVE); Candida Group, PCR NOT DETECTED (NOT DETECT); Candida glabrata-krusei, PCR NOT DETECTED (NOT DETECT)
== END | disposition home or self-care (01) ==
LOC: LAB SHORT 16:02 → LAB 16:02
PROVIDERS: Advanced Practice Midwife
DX: N76.0 Acute vaginitis (principal)
CPT/HCPCS: 87481; 87661; 87801